=== PATIENT | male | born 1995 | race American Indian/Alaskan Native ===

== ENCOUNTER 2016-08-27 17:31 | Emergency (ER) | payer OTHER ==
--- NOTE | 2016-08-27 17:55 | Emergency Department Report ---
Chief Complaint: GI Bleed Stated Complaint: RECTAL BLEEDING Time Seen by Provider: 08/27/16 17:52 - HPI History of Present Illness: Patient reports history of hemorrhoids for three weeks and rectal bleeding that started today - ROS Review of Systems: all other systems are unremarkable except for documentation in HPI - Exam Vital Signs: Vital Signs 08/27/16 17:46 Temperature 98.2 F Pulse Rate 82 Respiratory 18 Rate Blood Pressure 131/66 O2 Sat by Pulse 96 Oximetry Physical Exam: Gen: well developed and nourished, NAD MSE screening note: Focused history and physical exam performed. Due to findings the following was ordered: laboratory studies ordered ED Disposition for MSE Condition: Stable Forms: Accompanied Note
[2016-08-27 18:22] LABS: Basophils % (Auto) 1.1 % (0.0-1.8); Eosinophils % (Auto) 3.2 % (0.0-4.3); Hematocrit 45.6 % (35.5-45.6); Hemoglobin 15.7 gm/dl (11.8-15.2); Mean Corpuscular HGB Conc 34 % (32-34); Mean Corpuscular Hemoglobin 29 pg (28-32); Mean Corpuscular Volume 84 fl (84-94); Red Blood Count 5.45 M/mm3 (3.65-5.03); Red Cell Distribution Width 13.6 % (13.2-15.2); White Blood Count 8.2 K/mm3 (4.5-11.0)
[2016-08-27 18:31] LABS: INR 1.03 (0.87-1.13)
[2016-08-27 18:32] LABS: Partial Thromboplastin Time 31.2 Sec. (24.2-36.6)
[2016-08-27 18:33] LABS: Alanine Aminotransferase 37 units/L (7-56); Albumin 4.4 g/dL (3.9-5); Albumin/Globulin Ratio 1.5 %; Alkaline Phosphatase 84 units/L (35-129); Bilirubin,Total 0.3 mg/dL (0.1-1.2); Blood Urea Nitrogen 18 mg/dL (9-20); Calcium 9.3 mg/dL (8.4-10.2); Carbon Dioxide 30 mmol/L (22-30); Chloride 99.3 mmol/L (98-107); Glucose 91 mg/dL (75-100); Potassium 3.9 mmol/L (3.6-5.0); Sodium 140 mmol/L (137-145); Total Protein 7.3 g/dL (6.3-8.2)
[2016-08-27 18:36] LABS: Anion Gap 15 mmol/L
[2016-08-27 18:47] LABS: Platelet Count 158 K/mm3 (140-440)
[2016-08-28 01:12] VITALS: BP 119/75
--- NOTE | 2016-08-28 19:57 | ED Elopement Review ---
ED Pt Elopement review - Results review Lab results: Laboratory Tests 08/27/16 08/27/16 08/27/16 17:59 17:59 17:59 WBC 8.2 RBC 5.45 H Hgb 15.7 H Hct 45.6 MCV 84 MCH 29 MCHC 34 RDW 13.6 Plt Count 158 Lymph % (Auto) 28.5 [place] % (Auto) 7.6 H Eos % (Auto) 3.2 Baso % (Auto) 1.1 Lymph # 2.3 [place] # 0.6 Eos # 0.3 Baso # 0.1 Seg Neutrophils % 59.6 Seg Neutrophils # 4.9 PT 13.4 INR 1.03 APTT 31.2 Sodium 140 Potassium 3.9 Chloride 99.3 Carbon Dioxide 30 Anion Gap 15 BUN 18 Creatinine 1.0 Estimated GFR > 60 BUN/Creatinine Ratio 18.00 Glucose 91 Calcium 9.3 Total Bilirubin 0.3 AST 23 ALT 37 Alkaline Phosphatase 84 Total Protein 7.3 Albumin 4.4 Albumin/Globulin Ratio 1.5 - Call Back decision Pt Call Back Decision: No action required
== END 2016-08-28 05:16 | disposition left against medical advice (07) ==
LOC: ED 17:31
DX: K62.5 Hemorrhage of anus and rectum (principal); Z53.21 Procedure and treatment not carried out due to patient leaving prior to being seen by health care provider
CPT/HCPCS: 36415; 80053; 85025; 85610; 85730